=== PATIENT | female | born 1945 | race Two or more races ===

== ENCOUNTER 2018-01-09 18:05 | Emergency (ER) | payer BC ==
[~2018-01-09] VITALS: Ht 167.6 cm; Wt 79.4 kg
[2018-01-09] MEDS ORDERED: BASAGLAR K100 UNIT/1 (18:30)
[2018-01-09] MEDS ORDERED: NOVOLOG100 UNIT/1 (18:30)
== END 2018-01-09 20:09 | disposition home or self-care (01) ==
LOC: ER 18:05
DX: M12.561 Traumatic arthropathy, right knee (principal)